=== PATIENT | female | born 1945 | race Caucasian/White ===

== ENCOUNTER 2017-01-01 08:09 | Emergency (ER) | payer OTHER, MEDICARE ==
[~2017-01-01] VITALS: Ht 167.6 cm; Wt 71.7 kg
[~2017-01-01 08:09] MED LIST: ULTRAM50 MG PO
[2017-01-01 11:00] VITALS: BP 121/56
== END 2017-01-01 11:03 | disposition home or self-care (01) ==
LOC: EME 08:09
PROC: 2W3CX1Z Immobilization of Right Lower Arm using Splint (ICD-10-PCS; principal; 2017-01-01)
DX: S52.571A Other intraarticular fracture of lower end of right radius, initial encounter for closed fracture (principal); S00.31XA Abrasion of nose, initial encounter; S00.83XA Contusion of other part of head, initial encounter; W10.9XXA Fall (on) (from) unspecified stairs and steps, initial encounter; F17.200 Nicotine dependence, unspecified, uncomplicated
CPT/HCPCS: 73110; 99281; 99284